=== PATIENT | male | born 1960 | race African-American/Black ===

== ENCOUNTER 2019-03-05 10:29 | Emergency (ER) | payer MEDICARE, MEDICAID ==
--- NOTE | 2019-03-05 10:44 | EDM.PDOC ---
ED HPI GENERAL MEDICAL PROBLEM - General Chief Complaint: Respiratory Problem Stated Complaint: COUGH/SOB/ABDOMINAL BLOATING Time Seen by Provider: 03/05/19 10:43 Source of Information: Reports: Patient History Limitations: Reports: No Limitations - History of Present Illness INITIAL COMMENTS - FREE TEXT/NARRATIVE: 58-year-old male who is very hard of hearing presents to the ED with a complaint of feeling much more short of breath than normal this morning. He states he has a minimal cough. Still smokes 3-5 cigarettes per day. Feels congested in his throat and upper chest. No fever no chills. Feels abdominally bloated. States his bowels have been working very well lately. Appetite has been decreased from the norm. No history of coronary disease or asthma. O2 sats are 94% on arrival in the ED. Onset: Today, Sudden Onset Date: 03/05/19 Duration: Hour(s):, Getting Worse Location: Reports: Chest Quality: Reports: Other. Denies: Ache, Burning (Feels like he can't get a full deep breath.), Pressure Severity: Moderate (Dyspnea.) Improves with: Reports: Rest Worsens with: Reports: Movement Context: Reports: Other. Denies: Activity, Exercise, Lifting, Sick Contact, Trauma Associated Symptoms: Reports: Cough, Loss of Appetite, Malaise, Shortness of Breath, Other. Denies: Confusion (Spontaneous occurrence), Chest Pain, cough w sputum, Diaphoresis, Fever/Chills, Headaches, Nausea/Vomiting, Rash, Syncope Treatments [employer]CASE [employer]SEM[employer]ER: Reports: Other (see below) (Feels abdominally bloated. None.) - Related Data Allergies Allergy/AdvReac Type Severity Reaction Status Date / Time No Known Allergies Allergy Verified 03/05/19 10:40 Home Meds: Home Meds Albuterol/Ipratropium [DuoNeb 3.0-0.5 MG/3 ML] 3 ml .XX Q6H #40 neb 03/05/19 [Rx ] levoFLOXacin [Levaquin] 500 mg PO DAILY #9 tab 03/05/19 [Rx] predniSONE [Deltasone] 20 mg PO ASDIRECTED #18 tablet 03/05/19 [Rx] Past Medical History Respiratory History: Reports: COPD (Cigarette smoking. Currently down to 5 or 66 cigarettes a day) Social & Family History - Tobacco Use Smoking Status *Q: Current Every Day Smoker Years of Tobacco use: 20 Packs/Tins Daily: 0.2 - Recreational Drug Use Recreational Drug Use: No - Living Situation & Occupation Occupation: Employed (Works at the [employer] ED ROS GENERAL - Review of Systems Review Of Systems: See Below Constitutional: Reports: Malaise, Weakness, Fatigue, Decreased Appetite. Denies : Fever, Chills HEENT: Reports: Hearing Loss Respiratory: Reports: Shortness of Breath (Severe hearing loss and has only urinated his right ear. After speak very loud to talk with him.), Wheezing, Cough. Denies: Pleuritic Chest Pain, Sputum, Hemoptysis, Other Cardiovascular: Reports: Blood Pressure Problem, Dyspnea on Exertion. Denies: No Symptoms, Chest Pain, Claudication, Edema, Lightheadedness, Orthopnea (Was on antihypertensives in the past presents hypertensive at this time.), Palpitations, PND, Syncope Endocrine: Reports: No Symptoms GI/Abdominal: Reports: Constipation, Distension (Has had some issues with constipation with no good bowel month wrote for 5 days. 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 No signs of infection) Neurological: Reports: No Symptoms Psychiatric: Reports: No Symptoms Hematologic/Lymphatic: Reports: No Symptoms Immunologic: Reports: No Symptoms ED EXAM, GENERAL - Physical Exam Exam: See Below Exam Limited By: No Limitations General Appearance: Alert, WD/WN, Mild Distress Eye Exam: Bilateral Eye: Normal Inspection Ears: Normal TMs, Hearing Loss (Wearing a hearing aid in his right ear. Quite marked.), Other Throat/Mouth: Normal Inspection, Normal Lips, Normal Teeth, Normal Oropharynx Head: Atraumatic, Normocephalic Neck: Normal Inspection, Supple, Non-Tender. No: Lymphadenopathy (L), Lymphadenopathy (R) Respiratory/Chest: Decreased Breath Sounds, Rhonchi (Scattered rhonchi both lower lobes), Wheezing (Diffuse wheezing throughout all lung green.). No: Lungs Clear, Normal Breath Sounds, No Accessory Muscle Use, Chest Non-Tender, Respiratory Distress, Crackles (Decreased air entry lower 25% of lungs bilaterally.), Stridor, Pleural Rub, Accessory Muscle Use, Retractions, Splinting Cardiovascular: Normal Peripheral Pulses, Regular Rate, Rhythm, No Edema, No Gallop, No Murmur, No Rub Peripheral Pulses: 3+: Posterior Tibial (L), Posterior Tibial (R), Dorsalis Pedis (L), Dorsalis Pedis (R) GI/Abdominal: Normal Bowel Sounds, Soft, Non-Tender, No Organomegaly, No Distention, No Abnormal Bruit, No Mass, Pelvis Stable, Distended (Mildly distended and tympanitic to percussion component some degree of aerophagia.) Back Exam: Normal Inspection, Full Range of Motion. No: CVA Tenderness (L), CVA Tenderness (R) Extremities: Normal Inspection, Normal Range of Motion, Non-Tender, No Pedal Edema, Normal Capillary Refill Neurological: Alert, Oriented, CN II-XII Intact, Normal Cognition Psychiatric: Normal Affect, Normal Mood Skin Exam: Dry, Intact, Normal Color, No Rash EKG INTERPRETATION EKG Date: 03/05/19 Time: 10:43 Rhythm: NSR Rate (Beats/Min): 82 [place]: Normal P-Wave: Enlarged (Consider left atrial hypertrophy) QRS: Normal ST-T: Normal QT: Normal EKG Interpretation Comments: Borderline ECG Course - Vital Signs Last Recorded V/S: Last Vital Signs Temp 36.6 C 03/05/19 10:36 Pulse 89 03/05/19 10:36 Resp 18 03/05/19 10:36 BP 177/99 H 03/05/19 10:36 Pulse Ox 96 03/05/19 11:07 - Orders/Labs/Meds Orders: Active Orders 24 hr Category Date Time Status EKG Documentation Completion [RC] ASDIRECTED Care 03/05/19 10:39 Active RT Aerosol Therapy [RC] ASDIRECTED Care 03/05/19 10:52 Active Abdomen 1V Flat [CR] Stat Exams 03/05/19 10:51 Taken Chest 1V Frontal [CR] Stat Exams 03/05/19 11:31 Ordered MYCOPLASMA PNEUMONIAE IGM AB [CHEM] Stat Lab 03/05/19 11:46 Ordered PRO B-TYPE NATRIUR PEPT,BNPPRO [CHEM] Stat Lab 03/05/19 10:45 Received Sodium Chloride 0.9% [Normal Saline] 1,000 ml Med 03/05/19 11:15 Active IV ASDIRECTED EKG 12 Lead [EK] Stat Ther 03/05/19 10:39 Ordered Medication Orders Sodium Chloride (Normal Saline) 1,000 mls @ 125 mls/hr IV ASDIRECTED FRANCISCA Last Admin: 03/05/19 11:14 Dose: 125 mls/hr Labs: Laboratory Tests 03/05/19 03/05/19 03/05/19 Range/Units 10:45 10:45 10:45 WBC 5.22 (4.23-9.07) K/mm3 RBC 4.18 L (4.63-6.08) M/mm3 Hgb 14.2 (13.7-17.5) gm/L Hct 42.7 (40.1-51.0) % MCV 102.2 H (79.0-92.2) fl MCH 34.0 H (25.7-32.2) pg MCHC 33.3 (32.2-35.5) g/dl RDW Std Deviation 41.9 (35.1-43.9) fL Plt Count 209 (163-337) K/mm3 MPV 9.8 (9.4-12.3) fl Neutrophils % (Manual) 42 (40-60) % Band Neutrophils % 0 (0-10) % Lymphocytes % (Manual) 29 (20-40) % Atypical Lymphs % 0 % Monocytes % (Manual) 20 H (2-10) % Eosinophils % (Manual) 9 H (0.8-7.0) % Basophils % (Manual) 0 L (0.2-1.2) Platelet Estimate Adequate RBC Morph Comment Normal D-Dimer, Quantitative 0.28 (0.19-0.50) mg/L Sodium 139 (136-145) mEq/L Potassium 4.1 (3.5-5.1) mEq/L Chloride 105 (98-107) mEq/L Carbon Dioxide 29 (21-32) mEq/L Anion Gap 9.1 (5-15) BUN 19 H (7-18) mg/dL Creatinine 1.2 (0.7-1.3) mg/dL Est Cr Clr Drug Dosing 76.76 mL/min Estimated GFR (MDRD) > 60 (>60) mL/min BUN/Creatinine Ratio 15.8 (14-18) Glucose 95 (74-106) mg/dL Calcium 9.5 (8.5-10.1) mg/dL Magnesium 2.0 (1.8-2.4) mg/dl Total Bilirubin 0.4 (0.2-1.0) mg/dL AST 26 (15-37) U/L ALT 32 (16-63) U/L Alkaline Phosphatase 67 (46-116) U/L Troponin I < 0.017 (0.00-0.056) ng/mL C-Reactive Protein < 0.2 (<1.0) mg/dL Total Protein 7.1 (6.4-8.2) g/dl Albumin 3.6 (3.4-5.0) g/dl Globulin 3.5 gm/dL Albumin/Globulin Ratio 1.0 (1-2) Meds: Medications Generic Name Dose Route Start Last Admin Trade Name Freq PRN Reason Stop Dose Admin Sodium Chloride 1,000 mls @ 125 mls/hr 03/05/19 11:15 03/05/19 11:14 Normal Saline IV 125 mls/hr ASDIRECTED FRANCISCA Administration Discontinued Medications Generic Name Dose Route Start Last Admin Trade Name Freq PRN Reason Stop Dose Admin Albuterol/Ipratropium 3 ml 03/05/19 10:52 03/05/19 11:07 Duoneb 3.0-0.5 Mg/3 Ml NEB 03/05/19 10:53 3 ml ONETIME ONE Administration - Radiology Interpretation Free Text/Narrative:: 58-year-old male presents to the ED with dyspnea of relatively short onset starting mostly overnight and this morning. He is still smoker 3-5 cigarettes per day. He has a cough which is nonproductive. Feels like he's come down with a cold which went into his chest. Denies any fever or chills. Feels abdominally bloated and states he is appetite has been quite poor lately. No good bowel movement for the last 4-5 days. Emanation he is afebrile. Ears to your nose and throat exam are than being extremely hard of hearing does not reveal any abnormalities. His chest shows diffuse audible wheezing throughout all lung green particular posteriorly. Decreased air into lower 30% of lung green bilaterally. No slightly slightly tympanitic to percussion component with some aerophagia. He will have a chest x-ray and a KUB done. Routine labs will be collecte Including a d-dimer and a BNP. I suspect is experiencing a COPD exacerbation although is never been diagnosed with COPD. Plan DuoNeb at this time.d. - Re-Assessments/Exams Free Text/Narrative Re-Assessment/Exam: 03/05/19 11:45 chest x-ray reveals infiltrates bilaterally compatible with developing pneumonia. Question whether he may have mycoplasma. He has extensive pulmonary fibrosis. He indicates that his O2 sats are usually only 88% at home. I'm therefore going to place him on prednisone 20 mg twice a day for 6 days breakfast and supper and then once in the morning only for another 6 days. Levaquin 500 mg once daily for 9 more days. First dose was given in the ED. DuoNeb nebulizer treatments as he has a home nebulizer. One ampule every 8 hours for the next 10 days. Will have her review at the [place] clinic where he usually receives his care. Departure - Departure Time of Disposition: 11:48 Disposition: Home, Self-Care 01 Condition: Fair Clinical Impression: COPD exacerbation, Pneumonia - Discharge Information *PRESCRIPTION DRUG MONITORING PROGRAM REVIEWED*: Not Applicable *COPY OF PRESCRIPTION DRUG MONITORING REPORT IN PATIENT PÉREZ: Not Applicable Prescriptions: Albuterol/Ipratropium [DuoNeb 3.0-0.5 MG/3 ML] 3 ml .XX Q6H #40 neb levoFLOXacin [Levaquin] 500 mg PO DAILY #9 tab predniSONE [Deltasone] 20 mg PO ASDIRECTED #18 tablet Referrals: PCP,None [Primary Care Provider] - Forms: ED Department Discharge Additional Instructions: Evaluation the emergency room today in regards to increasing shortness of breath over the last week. This x-ray has changed quite a bit from the one done 4 days ago in the ED and early pneumonia is now present in the left lung. You do have advanced pulmonary fibrosis. Is a form of chronic obstructive pulmonary disease. Treatment in the ED was DuoNeb and first dose of prednisone called Solu -Medrol intravenously. He met at home is to continue DuoNeb 1 every 6-8 hours with a minimum of 3 times a day and up to 4 times a day to improve your breathing and wheezing. Antibiotic is to be Levaquin 500 mg once daily with the first tablet provided in the ED. We due tomorrow morning and she'll be taken for the next 9 day Third medicine is prednisone 20 mg with breakfast and supper for 6 days and then once in the morning only for another 6 days to further reduce inflammation in the lungs. [facility]. Return to the ED sooner if not getting markedly better in the next 3 dayss. - My Orders Last 24 Hours: My Active Orders 03/05/19 10:39 EKG Documentation Completion [RC] ASDIRECTED EKG 12 Lead [EK] Stat 03/05/19 10:45 PRO B-TYPE NATRIUR PEPT,BNPPRO [CHEM] Stat 03/05/19 10:51 Abdomen 1V Flat [CR] Stat 03/05/19 10:52 RT Aerosol Therapy [RC] ASDIRECTED 03/05/19 11:15 Sodium Chloride 0.9% [Normal Saline] 1,000 ml IV ASDIRECTED 03/05/19 11:31 Chest 1V Frontal [CR] Stat 03/05/19 11:46 MYCOPLASMA PNEUMONIAE IGM AB [CHEM] Stat - Assessment/Plan Last 24 Hours: My Active Orders 03/05/19 10:39 EKG Documentation Completion [RC] ASDIRECTED EKG 12 Lead [EK] Stat 03/05/19 10:45 PRO B-TYPE NATRIUR PEPT,BNPPRO [CHEM] Stat 03/05/19 10:51 Abdomen 1V Flat [CR] Stat 03/05/19 10:52 RT Aerosol Therapy [RC] ASDIRECTED 03/05/19 11:15 Sodium Chloride 0.9% [Normal Saline] 1,000 ml IV ASDIRECTED 03/05/19 11:31 Chest 1V Frontal [CR] Stat 03/05/19 11:46 MYCOPLASMA PNEUMONIAE IGM AB [CHEM] Stat
[2019-03-05] MEDS ORDERED: Albuterol/Ipratropium 3.0-0.5 MG/3 ML Neb Soln NEB ONE (10:52)
[2019-03-05] MEDS ORDERED: Sodium Chloride 0.9% 1,000 ML IV SCH (11:15)
--- NOTE | 2019-03-05 12:02 | CR ---
Abdomen: Supine view of the abdomen was obtained. Comparison: No previous study. Intramedullary ventura is partially seen within the left femur. Mild joint space narrowing is seen within both hips. Scoliosis and mild degenerative change is noted within the spine. Bowel gas pattern is normal. Calcifications are seen within the pelvis which are compatible with phleboliths. Impression: 1. Incidental findings. Nothing acute is appreciated. Diagnostic code #2
--- NOTE | 2019-03-05 12:13 | CR ---
Chest: Portable view of the chest was obtained. Comparison: No previous chest x-ray. Heart size is slightly generous. Tortuous thoracic aorta is seen. Lungs are clear with no acute parenchymal change. Bony structures are grossly intact. Impression: 1. Nothing acute is seen on portable chest x-ray. Diagnostic code #1
[2019-03-05] MEDS ORDERED: predniSONE 20 MG Tab PO ONE (13:03)
== END 2019-03-05 13:15 | disposition home or self-care (01) ==
LOC: JD.ED 10:29
DX: J20.8 Acute bronchitis due to other specified organisms (principal); F17.210 Nicotine dependence, cigarettes, uncomplicated
CPT/HCPCS: 36415; 71045; 74018; 80053; 83735; 83880; 84484; 85007; 85027; 85379; 86140; 86738; 93005; 94640; 96360; 96361; 99285; A9270; J7040; J7620-GY

== ENCOUNTER 2019-03-11 10:21 | Emergency (ER) | payer MEDICARE, MEDICAID ==
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
[2019-03-11] MEDS ORDERED: traMADol 50 MG Tab PO ONE (12:00)
--- NOTE | 2019-03-11 13:56 | CR ---
Pelvis: AP view of the pelvis was obtained. Comparison: Pelvis is seen on prior abdominal x-ray of 03/05/19. Intramedullary ventura is seen within the left femur. Small bony density which appear well corticated is noted off the superior greater trochanter of the right hip compatible with dystrophic calcification. Lucent line identified within the tip of the greater trochanter which appears stable. Mild joint space narrowing is seen superiorly within both hips. Well-corticated bony ossicle is noted off the superior right acetabulum each appears stable. Mild degenerative change is noted within the spine. Nothing acute is appreciated. Impression: 1. Findings as noted above. Nothing acute is appreciated. Diagnostic code #2
== END 2019-03-11 13:10 | disposition home or self-care (01) ==
LOC: JD.ED 10:21
DX: M25.551 Pain in right hip (principal); M25.552 Pain in left hip; I10 Essential (primary) hypertension; F17.210 Nicotine dependence, cigarettes, uncomplicated; G89.29 Other chronic pain; Z79.899 Other long term (current) drug therapy
CPT/HCPCS: 72170; 99283; A9270

== ENCOUNTER 2019-03-30 01:42 | Emergency (ER) | payer MEDICARE, MEDICAID ==
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
[2019-03-30] MEDS: Albuterol 0.083% 2.5 MG/3 ML Neb Soln NEB ONE (02:16)
[2019-03-30] MEDS: Azithromycin 250 MG Tab PO ONE (02:54)
--- NOTE | 2019-03-30 06:08 | CR ---
Chest: Frontal view of the chest was obtained. Comparison: Prior chest x-ray of 03/05/19. Heart size and mediastinum are normal. Lungs are clear. Bony structures are unremarkable. Impression: 1. Nothing acute is identified on frontal chest x-ray. Diagnostic code #1
== END 2019-03-30 02:58 | disposition home or self-care (01) ==
LOC: JD.ED 01:42
DX: J18.1 Lobar pneumonia, unspecified organism (principal); E78.00 Pure hypercholesterolemia, unspecified; I10 Essential (primary) hypertension; J44.9 Chronic obstructive pulmonary disease, unspecified; F17.210 Nicotine dependence, cigarettes, uncomplicated; Z79.899 Other long term (current) drug therapy
CPT/HCPCS: 71045; 71045-26; 94640; 99283-25; A9270-GY

== ENCOUNTER 2019-04-01 06:57 | Emergency (ER) | payer MEDICARE, MEDICAID ==
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
== END 2019-04-01 07:43 | disposition home or self-care (01) ==
LOC: JD.ED 06:57
DX: J20.8 Acute bronchitis due to other specified organisms (principal); F17.210 Nicotine dependence, cigarettes, uncomplicated; I10 Essential (primary) hypertension; E78.00 Pure hypercholesterolemia, unspecified; Z79.899 Other long term (current) drug therapy
CPT/HCPCS: 99282; 99283

== ENCOUNTER 2020-07-01 09:13 | Day surgery (SDC) | payer MEDICARE, MEDICAID ==
[2020-07-01] MEDS: Polymyxin B/Trimethoprim 10 ML Bottle EYELF SCH ×4 (09:26→11:40)
[2020-07-01] MEDS: Brimonidine 0.2% Ophth Soln 5 ML Bottle EYELF SCH ×4 (09:30→11:40)
[2020-07-01] MEDS: Phenylephrine 2.5% Ophth Soln 2 ML Bot EYELF SCH ×6 (09:35→11:05)
[2020-07-01] MEDS: Tropicamide 1% Ophth Soln 15 ML Bottle EYELF SCH ×4 (09:41→10:25)
--- NOTE | 2020-07-01 09:56 | PCM.PREANE ---
Preanesthetic Assessment - Procedure Proposed Procedure: Left Eye Cataract Extraction with IOL - Anesthesia/Transfusion/Family Hx Anesthesia History: Prior Anesthesia Without Reaction Family History of Anesthesia Reaction: No - Review of Systems General: No Symptoms Pulmonary: No Symptoms, Other (Smoker 5 or so a day.) Cardiovascular: No Symptoms Gastrointestinal: No Symptoms Neurological: No Symptoms Other: Reports: Depression (Bipolar Disorder) - Physical Assessment NPO Status Date: 06/30/20 NPO Status Time: 20:00 Vital Signs: Last Vital Signs Temp 37.5 C 07/01/20 09:10 Pulse 78 07/01/20 09:10 Resp 16 07/01/20 09:10 BP 127/81 07/01/20 09:10 Pulse Ox 94 L 07/01/20 09:10 Height: 1.83 m Weight: 105.233 kg ASA Class: 2 Mental Status: Alert & Oriented x3 Airway Class: Mallampati = 2 Thyro-Mental Finger Breadths: 3 Mouth Opening Finger Breadths: 3 ROM/Head Extension: Full Lungs: Clear to Auscultation, Normal Respiratory Effort Cardiovascular: Regular Rate, Regular Rhythm - Allergies Allergies/Adverse Reactions: Allergies Allergy/AdvReac Type Severity Reaction Status Date / Time No Known Allergies Allergy Verified 10/04/19 10:19 - Acknowledgements Anesthesia Type Planned: MAC Pt an Appropriate Candidate for the Planned Anesthesia: Yes Alternatives and Risks of Anesthesia Discussed w Pt/Guardian: Yes Pt/Guardian Understands and Agrees with Anesthesia Plan: Yes PreAnesthesia Questionnaire HEENT History: Reports: Hard of Hearing, Impaired Vision Cardiovascular History: Reports: High Cholesterol, Hypertension Respiratory History: Reports: Asthma, COPD Gastrointestinal History: Reports: Chronic Constipation Genitourinary History: Reports: None Musculoskeletal History: Reports: Fracture Other Musculoskeletal History: hip pain Neurological History: Reports: Concussion Psychiatric History: Reports: None Endocrine/Metabolic History: Reports: None Hematologic History: Reports: None Immunologic History: Reports: None Oncologic (Cancer) History: Reports: None Dermatologic History: Reports: None - Infectious Disease History Infectious Disease History: Reports: None - Past Surgical History HEENT Surgical History: Reports: Oral Surgery Other GI Surgeries/Procedures: feeling bloating x past week - HOME MEDS Home Medications: Home Meds Cyclobenzaprine [Flexeril] 10 mg PO TID PRN 06/27/20 [History] Naproxen [Naprosyn] 500 mg PO ASDIRECTED PRN 06/27/20 [History] Omeprazole 20 mg PO DAILY 06/27/20 [History] Tobramycin/Dexamethasone [Tobradex Eye Drops] 1 drop EYELF QID 06/27/20 [History] amLODIPine [Norvasc] 5 mg PO DAILY 06/27/20 [History] - CURRENT (IN HOUSE) MEDS Current Meds: Current Medications Brimonidine Tartrate (Alphagan 0.2% Ophth Soln) 0 ml EYELF ASDIRECTED FRANCISCA Stop: 07/01/20 18:00 Last Admin: 07/01/20 09:30 Dose: 1 drop Documented by: Cefuroxime Sodium (Zinacef) 0 mg EYELF ASDIRECTED FRANCISCA Stop: 07/01/20 18:00 Lidocaine HCl (Xylocaine-Mpf 1%) 0 ml INJECT ASDIRECTED FRANCISCA Stop: 07/01/20 18:00 Phenylephrine HCl (Steve-Synephrine 2.5% Ophth Soln) 0 ml EYELF ASDIRECTED FRANCISCA Stop: 07/01/20 18:00 Last Admin: 07/01/20 09:45 Dose: 1 drop Documented by: Pilocarpine HCl (Pilocar 4% Ophth Soln) 0 ml EYELF ASDIRECTED FRANCISCA Stop: 07/01/20 18:00 Polymyxin/Trimethoprim Sulfate (Polytrim Ophth Soln) 0 ml EYELF ASDIRECTED FRANCISCA Stop: 07/01/20 18:00 Last Admin: 07/01/20 09:26 Dose: 1 drop Documented by: Tetracaine HCl (Tetracaine 0.5% Steri-Unit Nataliia) 0 ml EYEBOTH ASDIRECTED FRANCISCA Stop: 07/01/20 18:00 Tropicamide (Mydriacyl 1% Ophth Soln) 0 ml EYELF ASDIRECTED FRANCISCA Stop: 07/01/20 18:00 Last Admin: 07/01/20 09:50 Dose: 1 drop Documented by:
[2020-07-01] MEDS: Tetracaine HCl/PF 0.5% 4 ML Bottle EYEBOTH SCH ×5 (10:30→11:15)
[2020-07-01] MEDS: Lidocaine 1% PF 2 ML SDV INJECT SCH ×2 (10:48→11:15)
[2020-07-01] MEDS: Cefuroxime 10 MG/ML SYRINGE EYELF SCH ×2 (10:49→11:39)
[2020-07-01] MEDS: Pilocarpine 4% Ophth Soln 15 ML Bot EYELF SCH ×2 (10:49→11:40)
--- NOTE | 2020-07-01 11:46 | PCM48HPAN ---
Post Anesthesia Note - EVALUATION WITHIN 48HRS OF ANESTHETIC Vital Signs in Normal Range: Yes Patient Participated in Evaluation: Yes Respiratory Function Stable: Yes Airway Patent: Yes Cardiovascular Function Stable: Yes Hydration Status Stable: Yes Pain Control Satisfactory: Yes Nausea and Vomiting Control Satisfactory: Yes Mental Status Recovered: Yes Vital Signs: Last Vital Signs Temp 99.5 F 07/01/20 09:10 Pulse 78 07/01/20 09:10 Resp 16 07/01/20 09:10 BP 127/81 07/01/20 09:10 Pulse Ox 94 L 07/01/20 09:10 129/79, HR 68, SpO2 97% RA,
== END 2020-07-01 11:57 | disposition home or self-care (01) ==
LOC: JD.SDS 09:13
PROVIDERS: ATTEND Ophthalmology
DX: H25.89 Other age-related cataract (principal); F31.9 Bipolar disorder, unspecified; F17.200 Nicotine dependence, unspecified, uncomplicated; E78.00 Pure hypercholesterolemia, unspecified; I10 Essential (primary) hypertension; J44.9 Chronic obstructive pulmonary disease, unspecified; H21.42 Pupillary membranes, left eye; H21.81 Floppy iris syndrome; Z79.899 Other long term (current) drug therapy
CPT/HCPCS: 66982; J0697; J2001; C1780

== ENCOUNTER 2020-08-05 12:34 | Day surgery (SDC) | payer MEDICARE, MEDICAID ==
[~2020-08-05 12:34] MED LIST: Dexamethasone/Tobramycin 0.1-0.3% Ophth Susp 5 ML Bottle EYERT SCH; Erythromycin Base 0.5% Ophth Oint 1 GM Tube EYERT SCH; Lactated Ringers 1,000 ML IV SCH; Lidocaine 1%/Sod Bicarbonate in NS 8.4% 1 ML Syringe IDERM PRN; Phenylephrine 2.5% Ophth Soln 2 ML Bot EYERT SCH; Sodium Chloride 0.9% 10 ML Syringe FLUSH PRN
[2020-08-05] MEDS ORDERED: Proparacaine 0.5% Ophth Soln 15 ML Bottle EYERT SCH (12:51)
[2020-08-05] MEDS ORDERED: Lidocaine 1% with EPINEPHrine 1:100,000 20 ML MDV ONE (13:00)
--- NOTE | 2020-08-05 13:07 | PCM.PREANE ---
Preanesthetic Assessment - Anesthesia/Transfusion/Family Hx Anesthesia History: Prior Anesthesia Without Reaction Family History of Anesthesia Reaction: No Transfusion History: No Prior Transfusion(s) - Review of Systems General: No Symptoms, Other (bipolar, no current meds) Pulmonary: Other (asthma, denies any problems with this. no inhalers) Cardiovascular: Other (HTn, Controlled on meds) Gastrointestinal: Other (GERD controlled on meds) Other: Reports: Depression - Physical Assessment NPO Status Date: 08/04/20 NPO Status Time: 23:00 Height: 1.85 m Weight: 101.605 kg ASA Class: 2 Mental Status: Alert & Oriented x3 Airway Class: Mallampati = 2 Dentition: Reports: Normal Dentition Thyro-Mental Finger Breadths: 3 Mouth Opening Finger Breadths: 3 ROM/Head Extension: Full Lungs: Clear to Auscultation, Normal Respiratory Effort Cardiovascular: Regular Rate, Regular Rhythm - Allergies Allergies/Adverse Reactions: Allergies Allergy/AdvReac Type Severity Reaction Status Date / Time No Known Allergies Allergy Verified 10/04/19 10:19 - Blood Blood Available: No Product(s) Available: None - Anesthesia Plan Pre-Op Medication Ordered: None - Acknowledgements Anesthesia Type Planned: MAC Pt an Appropriate Candidate for the Planned Anesthesia: Yes Alternatives and Risks of Anesthesia Discussed w Pt/Guardian: Yes Pt/Guardian Understands and Agrees with Anesthesia Plan: Yes PreAnesthesia Questionnaire HEENT History: Reports: Hard of Hearing, Impaired Vision Cardiovascular History: Reports: High Cholesterol, Hypertension Respiratory History: Reports: Asthma, COPD Gastrointestinal History: Reports: Chronic Constipation Genitourinary History: Reports: None Musculoskeletal History: Reports: Fracture Other Musculoskeletal History: hip pain Neurological History: Reports: Concussion Psychiatric History: Reports: None Endocrine/Metabolic History: Reports: None Hematologic History: Reports: None Immunologic History: Reports: None Oncologic (Cancer) History: Reports: None Dermatologic History: Reports: None - Infectious Disease History Infectious Disease History: Reports: None - Past Surgical History HEENT Surgical History: Reports: Oral Surgery Other GI Surgeries/Procedures: feeling bloating x past week - HOME MEDS Home Medications: Home Meds Cyclobenzaprine [Flexeril] 10 mg PO TID PRN 06/27/20 [History] Naproxen [Naprosyn] 500 mg PO ASDIRECTED PRN 06/27/20 [History] Omeprazole 20 mg PO DAILY 06/27/20 [History] Tobramycin/Dexamethasone [Tobradex Eye Drops] 1 drop EYELF QID 06/27/20 [History] amLODIPine [Norvasc] 5 mg PO DAILY 06/27/20 [History] - CURRENT (IN HOUSE) MEDS Current Meds: Current Medications Erythromycin (Erythromycin 0.5% Ophth Oint) 1 gm EYERT ONETIME FRANCISCA Stop: 08/05/20 20:00 Lactated Ringer's (Ringers, Lactated) 1,000 mls @ 125 mls/hr IV ASDIRECTED FRANCISCA Stop: 08/05/20 20:00 Lidocaine/Sodium Bicarbonate (Buffered Lidocaine 1% In Ns 8.4%) 0.25 ml IDERM ONETIME PRN PRN Reason: Prior to IV Start Stop: 08/05/20 20:00 Phenylephrine HCl (Steve-Synephrine 2.5% Ophth Soln) 0 ml EYERT ONETIME FRANCISCA Stop: 08/05/20 20:00 Proparacaine HCl (Proparacaine 0.5% Ophth Soln) 0 ml EYERT ASDIRECTED FRANCISCA Stop: 08/05/20 20:00 Sodium Chloride (Saline Flush) 10 ml FLUSH ASDIRECTED PRN PRN Reason: Keep Vein Open Stop: 08/05/20 20:00 Tobramycin/Dexamethasone (Tobradex Ophth Susp) 0 ml EYERT QID FRANCISCA Stop: 08/05/20 20:00 Discontinued Medications Lidocaine/Epinephrine (Xylocaine 1% With Epinephrine 1:100,000) Confirm Administered Dose 20 ml .ROUTE .STK-MED ONE Stop: 08/05/20 13:01
[2020-08-05] MEDS ORDERED: Midazolam 1 MG/ML 2 ML SDV ONE ×2 (13:20→14:12)
--- NOTE | 2020-08-05 14:46 | PCM.POSTAN ---
POST ANESTHESIA ASSESSMENT - MENTAL STATUS Mental Status: Alert, Oriented, Somnolent - VITAL SIGNS Vital Signs: Last Vital Signs Temp 36.8 C 08/05/20 12:35 Pulse 75 08/05/20 12:35 Resp 16 08/05/20 12:35 BP 125/75 08/05/20 12:35 Pulse Ox 96 08/05/20 12:35 - RESPIRATORY Respiratory Status: Respiratory Rate WNL, Airway Patent, O2 Saturation Stable - CARDIOVASCULAR CV Status: Pulse Rate WNL, Blood Pressure Stable - GASTROINTESTINAL GI Status: No Symptoms - PAIN Pain Score: 0 - POST OP HYDRATION Hydration Status: Adequate & Stable - OBSERVATIONS Free Text/Narrative:: Routine transfer to recovery with handoff to RN. VSS, SV, ARAMBULA, FAC, CTAB. No concerns at this time. Hearing aids at bedside with glasses.
--- NOTE | 2020-08-05 14:59 | PCM48HPAN ---
Post Anesthesia Note - EVALUATION WITHIN 48HRS OF ANESTHETIC Vital Signs in Normal Range: Yes Patient Participated in Evaluation: Yes Respiratory Function Stable: Yes Airway Patent: Yes Cardiovascular Function Stable: Yes Hydration Status Stable: Yes Pain Control Satisfactory: Yes Nausea and Vomiting Control Satisfactory: Yes Mental Status Recovered: Yes (Patient still a little sedated) Vital Signs: Last Vital Signs Temp 35.7 C L 08/05/20 14:37 Pulse 64 08/05/20 14:37 Resp 15 08/05/20 14:37 BP 142/84 H 08/05/20 14:37 Pulse Ox 100 08/05/20 14:37 - COMMENTS/OBSERVATIONS Free Text/Narrative:: Once the patient meets PAR criteria for discharge and his ride arrives he is free to go home per [facility] instruction. VSS, SV, ARAMBULA, FAC, CTAB. No concerns at this time.
[2020-08-05] MEDS ORDERED: Acetaminophen/oxyCODONE 325-5 MG Tab ONE (15:16)
[2020-08-05] MEDS ORDERED: Acetaminophen/oxyCODONE 325-5 MG Tab PO ONE (15:30)
== END 2020-08-05 16:50 | disposition home or self-care (01) ==
LOC: JD.SDS 12:34
PROVIDERS: ATTEND Ophthalmology
DX: H11.051 Peripheral pterygium, progressive, right eye (principal); H25.811 Combined forms of age-related cataract, right eye; H02.831 Dermatochalasis of right upper eyelid; H16.103 Unspecified superficial keratitis, bilateral; H02.834 Dermatochalasis of left upper eyelid; J45.909 Unspecified asthma, uncomplicated; F31.9 Bipolar disorder, unspecified; F17.200 Nicotine dependence, unspecified, uncomplicated; E78.00 Pure hypercholesterolemia, unspecified; Z96.1 Presence of intraocular lens; Z79.899 Other long term (current) drug therapy
CPT/HCPCS: 65426; A9270; J2250; J7120; V2790

== ENCOUNTER 2020-09-28 12:27 | Emergency (ER) | payer MEDICARE, MEDICAID ==
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
== END 2020-09-28 14:00 | disposition home or self-care (01) ==
LOC: JD.ED 12:27
DX: I10 Essential (primary) hypertension (principal); J44.9 Chronic obstructive pulmonary disease, unspecified; F17.210 Nicotine dependence, cigarettes, uncomplicated; Z79.899 Other long term (current) drug therapy
CPT/HCPCS: 99283

== ENCOUNTER 2021-05-21 11:08 | Emergency (ER) | payer MEDICARE, MEDICAID ==
[2021-05-21] MEDS ORDERED: Ketorolac 60 MG/2 ML SDV IM ONE (11:24)
--- NOTE | 2021-05-21 12:16 | CR ---
Lumbar spine: AP, lateral and coned-down lateral view centered to the lumbosacral junction were obtained. Comparison: No prior lumbar spine imaging is available. Mild scoliosis is noted. Disc space narrowing is seen at L1-2, L2-3, L3-4 and L4-5. Minimal disc space narrowing at L5-S1 is seen. Minimal disc space narrowing is noted at T11-12. Scattered anterior and lateral osteophytes are seen. Minimal loss of height of the lateral L3 vertebral body is seen along the scoliosis side. Pedicles are intact. Visualized transverse and spinous processes are intact. Impression: 1. Scoliosis and degenerative change as noted above. 2. Nothing acute is appreciated. Diagnostic code #3
--- NOTE | 2021-05-21 13:06 | CT ---
CT lumbar spine Technique: Multiple axial sections were obtained from above the T11-12 disc inferiorly through the L5-S1 disc. Reconstructed coronal and sagittal images were obtained. Findings: T11-12: Slight posterior disc space narrowing is seen. No central canal stenosis or neural foraminal stenosis is seen. T12-L1: Moderate disc space narrowing is seen. Posterior osteophytes are noted to the left of midline. No central canal stenosis is seen. Mild left-sided neural foraminal stenosis is seen. L1-2: Moderate narrowing is seen. Slight circumferential disc bulge is seen. Posterior disc maintains a minimally concave margin. No central canal stenosis is seen. Moderate left-sided neural foraminal stenosis is seen. Right neural foramen is patent. L2-3: Mild disc space narrowing is noted. Slight circumferential disc bulge is seen. Posterior disc maintains a mostly planar margin. No central canal stenosis is seen. Moderate bilateral neural foraminal stenosis is seen. L3-4: Posterior disc space narrowing is seen. Circumferential disc bulge is noted. Degenerative apophyseal change is seen. Unilateral spondylitic defect is seen on the right side. Mild central canal stenosis is seen. Right neural foramen is fairly well narrowed. Left neural foramen is minimally narrowed. L4-5: Unilateral spondylitic defect is seen on the right side. Posterior disc is minimally narrowed. Mild posterior disc bulge is seen. Severe narrowing of the right neural foramen is seen. Fairly severe narrowing of the left neural foramen is seen. Mild central canal stenosis is noted. L5-S1: Neural foramina appear to be patent where the nerve roots exit. No central canal stenosis is seen. Mild diffuse posterior disc bulge is noted. Degenerative change is noted within both sacroiliac joints. No acute fracture is seen. No abnormal subluxation is seen. Scoliosis is noted on the reconstructed AP views. Scattered anterior and lateral endplate osteophytes are also noted. Impression: 1. Diffuse degenerative change as described above. 2. Nothing acute is seen. Diagnostic code #3
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
== END 2021-05-21 13:33 | disposition home or self-care (01) ==
LOC: JD.ED 11:08
DX: M54.5 Low back pain (principal); E78.00 Pure hypercholesterolemia, unspecified; I10 Essential (primary) hypertension; E66.9 Obesity, unspecified; J44.9 Chronic obstructive pulmonary disease, unspecified; Z68.31 Body mass index [BMI] 31.0-31.9, adult; Z72.0 Tobacco use
CPT/HCPCS: 72100; 72131; 96372; 99284; J1885; 99283

== ENCOUNTER 2021-09-01 15:17 | Emergency (ER) | payer MEDICARE, MEDICAID ==
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
== END 2021-09-01 17:42 | disposition home or self-care (01) ==
LOC: JD.ED 15:17
DX: J40 Bronchitis, not specified as acute or chronic (principal); I10 Essential (primary) hypertension; J44.9 Chronic obstructive pulmonary disease, unspecified; F17.200 Nicotine dependence, unspecified, uncomplicated; E66.9 Obesity, unspecified; Z68.28 Body mass index [BMI] 28.0-28.9, adult; Z79.899 Other long term (current) drug therapy; Z20.822 Contact with and (suspected) exposure to COVID-19
CPT/HCPCS: 99283; U0002

== ENCOUNTER 2021-10-30 13:08 | Emergency (ER) | payer MEDICARE, MEDICAID ==
[2021-10-30] MEDS ORDERED: Aspirin 81 MG Tab.Chew PO ONE (13:25)
[2021-10-30] MEDS ORDERED: Sodium Chloride 0.9% 10 ML Syringe FLUSH PRN (13:25)
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
--- NOTE | 2021-10-30 14:05 | CR ---
Chest: Frontal view of the chest was obtained. Comparison: Prior chest x-ray of 03/30/19. Heart size and mediastinum are within normal limits. Lungs are clear with no acute parenchymal change. Bony structures show nothing acute. Impression: 1. Nothing acute is seen on frontal chest x-ray. Diagnostic code #1
[2021-10-30 14:18] LABS: CORONAVIRUS COVID-19 NAA NEGATIVE (NEGATIVE)
== END 2021-10-30 16:26 | disposition home or self-care (01) ==
LOC: JD.ED 13:08
DX: R07.9 Chest pain, unspecified (principal); E78.00 Pure hypercholesterolemia, unspecified; I10 Essential (primary) hypertension; J44.9 Chronic obstructive pulmonary disease, unspecified; E66.9 Obesity, unspecified; Z68.30 Body mass index [BMI] 30.0-30.9, adult; Z72.0 Tobacco use; Z20.822 Contact with and (suspected) exposure to COVID-19
CPT/HCPCS: 0240U; 36415; 71045; 71045-26; 80053; 83735; 84484; 85025; 85379; 85610; 85730; 93005; 93010; 99284; 99285-25; A9270-GY

== ENCOUNTER 2022-05-05 09:46 | Emergency (ER) | payer MEDICARE, MEDICAID ==
[2022-05-05 11:30] LABS: CORONAVIRUS COVID-19 NAA NEGATIVE (NEGATIVE)
== END 2022-05-05 12:05 | disposition home or self-care (01) ==
LOC: JD.ED 09:46
DX: J40 Bronchitis, not specified as acute or chronic (principal); E78.00 Pure hypercholesterolemia, unspecified; I10 Essential (primary) hypertension; F17.210 Nicotine dependence, cigarettes, uncomplicated; E66.9 Obesity, unspecified; Z68.30 Body mass index [BMI] 30.0-30.9, adult; Z20.822 Contact with and (suspected) exposure to COVID-19
CPT/HCPCS: 0241U; 36415; 71046; 80053; 84484; 85025; 93005; 99284; 93010

== ENCOUNTER 2022-12-19 10:44 | Emergency (ER) | payer MEDICARE, MEDICAID | END 2022-12-19 12:30 | disposition home or self-care (01) | LOC: JD.ED 10:44 | DX: S42.255A Nondisplaced fracture of greater tuberosity of left humerus, initial encounter for closed fracture (principal); J44.9 Chronic obstructive pulmonary disease, unspecified; I10 Essential (primary) hypertension; E66.9 Obesity, unspecified; Z68.30 Body mass index [BMI] 30.0-30.9, adult; Z79.899 Other long term (current) drug therapy; Y04.8XXA Assault by other bodily force, initial encounter | CPT/HCPCS: 73030-26-LT; 73030-LT; 99283 ==

== ENCOUNTER 2023-02-01 11:46 | Emergency (ER) | payer MEDICARE, MEDICAID | END 2023-02-01 13:10 | disposition home or self-care (01) | LOC: JD.ED 11:46 | DX: M25.512 Pain in left shoulder (principal); M54.50 Low back pain, unspecified; I10 Essential (primary) hypertension; J44.9 Chronic obstructive pulmonary disease, unspecified; E66.9 Obesity, unspecified; Z68.32 Body mass index [BMI] 32.0-32.9, adult | CPT/HCPCS: 73030-26-LT; 73030-LT; 99283 ==

== ENCOUNTER 2023-09-15 07:13 | Day surgery (SDC) | payer MEDICARE, MEDICAID ==
[2023-09-15] MEDS ORDERED: Sodium Chloride 0.9% 10 ML Syringe FLUSH PRN (08:55)
[2023-09-15] MEDS ORDERED: Sodium Chloride 0.9% 10 ML Syringe FLUSH SCH (09:00)
[2023-09-15] MEDS ORDERED: Lactated Ringers 1,000 ML IV SCH (09:00)
== END 2023-09-15 10:08 | disposition home or self-care (01) ==
LOC: JD.SDS 07:13
PROVIDERS: ATTEND Specialist
DX: D64.9 Anemia, unspecified (principal); D12.0 Benign neoplasm of cecum; D12.5 Benign neoplasm of sigmoid colon; D12.2 Benign neoplasm of ascending colon; K62.1 Rectal polyp; M25.512 Pain in left shoulder; K29.50 Unspecified chronic gastritis without bleeding; B96.81 Helicobacter pylori [H. pylori] as the cause of diseases classified elsewhere; K21.00 Gastro-esophageal reflux disease with esophagitis, without bleeding; K44.9 Diaphragmatic hernia without obstruction or gangrene; F41.8 Other specified anxiety disorders; E78.00 Pure hypercholesterolemia, unspecified; J44.9 Chronic obstructive pulmonary disease, unspecified; K59.09 Other constipation; I10 Essential (primary) hypertension; E78.2 Mixed hyperlipidemia; G47.33 Obstructive sleep apnea (adult) (pediatric); F41.0 Panic disorder [episodic paroxysmal anxiety]; E66.9 Obesity, unspecified; F17.210 Nicotine dependence, cigarettes, uncomplicated; Z79.82 Long term (current) use of aspirin; Z79.899 Other long term (current) drug therapy; Z83.3 Family history of diabetes mellitus; Z68.33 Body mass index [BMI] 33.0-33.9, adult
CPT/HCPCS: 43239; 45385; J7120; 00813; J2704; J3010; J3490

== ENCOUNTER 2023-10-20 08:30 | Day surgery (SDC) | payer MEDICARE, MEDICAID ==
[~2023-10-20 08:30] MED LIST changes: -Dexamethasone/Tobramycin 0.1-0.3% Ophth Susp 5 ML Bottle EYERT SCH; -Erythromycin Base 0.5% Ophth Oint 1 GM Tube EYERT SCH; -Lidocaine 1%/Sod Bicarbonate in NS 8.4% 1 ML Syringe IDERM PRN; -Phenylephrine 2.5% Ophth Soln 2 ML Bot EYERT SCH; +Sodium Chloride 0.9% 10 ML Syringe FLUSH SCH
[2023-10-20] MEDS ORDERED: ceFAZolin 2 GM Vial ONE (10:15)
[2023-10-20] MEDS ORDERED: dexmedeTOMIDine HCl 200 MCG/2 ML SDV ONE (10:15)
[2023-10-20] MEDS ORDERED: Ropivacaine 0.5% 5 MG/ML 30 ML SDV ONE (10:15)
[2023-10-20] MEDS ORDERED: fentaNYL 100 MCG/2 ML SDV ONE (10:17)
[2023-10-20] MEDS ORDERED: Midazolam 1 MG/ML 2 ML SDV ONE (10:18)
[2023-10-20] MEDS ORDERED: Propofol 200 MG/20 ML SDV ONE ×3 (10:18→12:11)
[2023-10-20] MEDS ORDERED: EPINEPHrine 1 MG/ML SDV ONE ×2 (10:25→10:55)
[2023-10-20] MEDS ORDERED: Dexamethasone 4 MG/ML 5 ML MDV ONE (10:55)
[2023-10-20] MEDS ORDERED: Lidocaine 1% PF 2 ML SDV ONE (10:55)
[2023-10-20] MEDS ORDERED: Lidocaine 1% 6 ML ONE (11:18)
[2023-10-20] MEDS ORDERED: Ondansetron 4 MG/2 ML SDV ONE (11:39)
[2023-10-20] MEDS ORDERED: Lactated Ringers 1,000 ML ONE (12:02)
== END 2023-10-20 14:43 | disposition home or self-care (01) ==
LOC: JD.SDS 08:30
PROVIDERS: ATTEND Orthopaedic Surgery
DX: M75.102 Unspecified rotator cuff tear or rupture of left shoulder, not specified as traumatic (principal); M75.42 Impingement syndrome of left shoulder; M75.22 Bicipital tendinitis, left shoulder; I10 Essential (primary) hypertension; J44.9 Chronic obstructive pulmonary disease, unspecified; F41.9 Anxiety disorder, unspecified; F31.9 Bipolar disorder, unspecified; E78.2 Mixed hyperlipidemia; F17.210 Nicotine dependence, cigarettes, uncomplicated; Z79.899 Other long term (current) drug therapy
CPT/HCPCS: 29823; 29826; 29827; 29828; 64415; C1713; J0171; J0690; J1100; J2250; J2405; J2704; J2795; J3010; J7120; 01630; J3490

== ENCOUNTER 2024-02-10 10:18 | Emergency (ER) | payer MEDICARE, MEDICAID ==
[2024-02-10] MEDS: Dexamethasone 4 MG/ML 5 ML MDV PO ONE (12:42)
[2024-02-10] MEDS: Penicillin G Benzathine 1,200,000 Units/2 ML Syringe IM ONE (12:43)
== END 2024-02-10 12:58 | disposition home or self-care (01) ==
LOC: JD.ED 10:18
DX: J02.9 Acute pharyngitis, unspecified (principal); I10 Essential (primary) hypertension; E78.00 Pure hypercholesterolemia, unspecified; J44.9 Chronic obstructive pulmonary disease, unspecified; F17.210 Nicotine dependence, cigarettes, uncomplicated; Z79.899 Other long term (current) drug therapy
CPT/HCPCS: 87651; 96372; 99283; J0561; J8540

== ENCOUNTER 2024-12-29 18:52 | Emergency (ER) | payer MEDICARE, MEDICAID | END 2024-12-29 21:45 | disposition home or self-care (01) | LOC: JD.ED 18:52 | DX: M79.651 Pain in right thigh (principal); M79.652 Pain in left thigh; I10 Essential (primary) hypertension; E78.00 Pure hypercholesterolemia, unspecified; J44.89 Other specified chronic obstructive pulmonary disease; F17.210 Nicotine dependence, cigarettes, uncomplicated; Z88.8 Allergy status to other drugs, medicaments and biological substances | CPT/HCPCS: 93970; 93970-26; 99283 ==

== ENCOUNTER 2025-04-04 11:20 | Emergency (ER) | payer MEDICARE, MEDICAID | END 2025-04-04 11:43 | disposition home or self-care (01) | LOC: JD.ED 11:20 | DX: K04.7 Periapical abscess without sinus (principal); I10 Essential (primary) hypertension; J44.9 Chronic obstructive pulmonary disease, unspecified; E78.00 Pure hypercholesterolemia, unspecified; E66.9 Obesity, unspecified; F17.210 Nicotine dependence, cigarettes, uncomplicated; Z79.899 Other long term (current) drug therapy | CPT/HCPCS: 99282 ==

== ENCOUNTER 2025-08-17 11:08 | Emergency (ER) | payer MEDICARE, MEDICAID | END 2025-08-17 11:48 | disposition home or self-care (01) | LOC: JD.ED 11:08 | DX: R68.84 Jaw pain (principal); R59.0 Localized enlarged lymph nodes; I10 Essential (primary) hypertension; E78.00 Pure hypercholesterolemia, unspecified; J44.89 Other specified chronic obstructive pulmonary disease; F17.210 Nicotine dependence, cigarettes, uncomplicated; Z79.899 Other long term (current) drug therapy | CPT/HCPCS: 99283; 99284 ==